=== PATIENT | female | born 1965 | race Caucasian/White ===

== ENCOUNTER → 2016-07-25 | Day surgery (SDC) | payer OTHER ==
[~2016-07-25] MED LIST: ABILIFY10 MG PO; ABILIFY5 MG PO; ADDERALL PO; ADDERALL20 MG; ALBUTEROL17 G1 INH; ALBUTEROL17 GM INH; ALPRAZOLAM PO; AMARYL2 MG PO; AMLODIPINE BESYL5 MG PO; ASPIRIN81 M1 PO; ATIVAN PO; AZMACORT20 GM INH; BENTYL10 M1 PO; BENTYL10 MG PO; BREO ELLIPTA 21 EACH INH; CARAFATE PO; CELEXA PO; CIPRO PO; CITALOPRAM HBR40 MG PO; CRESTOR10 MG PO; CRESTOR40 MG PO; CRESTOR5 MG PO; CUTIVATE TOP; DESOXIMETASONE15 G2 TOP; DESYREL150 M1 PO; DICYCLOMINE HCL10 MG PO; DYMISTA NASAL S23 GM; FOLAST TABLET1 EACH PO; GABAPENTIN600 MG PO; GLIMEPIRIDE2 MG PO; GLIPIZIDE10 MG PO; GLUCOPHAGE500 MG PO; GLUCOVANCE 5/501 TA2 PO; HCTZ PO; HUMALOG100 UNIT/1 SUBQ; HYDROCHLOROTHIA25 MG PO; IBUPROFEN800 MG PO; IMITREX PO; IMITREX50 MG PO; INVOKANA100 MG PO; ISOSORBIDE DINI30 MG PO; JANUVIA PO; JANUVIA25 MG PO; KCL PO; LANTUS SOL100 UNIT/1 SUBQ; LEVAQUIN PO; LIPITOR40 MG PO; LOMOTIL TABLET1 TAB PO; LOMOTIL WHITE2.5 M1 PO; LORTAB 5-325 M1 EACH PO; LYRICA50 MG PO; MAGNESIUM400 MG PO; MAXAIR INH; METFORMIN PO; MONTELUKAST SOD10 MG PO; NEURONTIN600 MG PO; NITROSTAT0.4 MG SL; NORVASC PO; OMEPRAZOLE40 M1 PO; OXYCODON HCL-1 UDTAB PO; OXYCODONE HCL10 MG PO; PERCOCET10 PO; PHENERGAN PR; POTASSIUM CHLO10 ME1 PO; POTASSIUM CHLO10 MEQ PO; PROTONIX PO; RITALIN PO; RITALIN10 MG PO; ROBAXIN500 MG PO; ROSUVASTATIN CA20 MG; SINGULAIR PO; SPIRIVA18 MCG INH; SUMATRIPTAN PO; SYMBICORT INH; SYNTHROID PO; SYNTHROID75 MCG PO; SYNTHROID88 MCG PO; TIZANIDINE HCL4 M1 PO; TYLENOL #3 PO; VICODIN 5/1 TAB 5/50 PO; VOLTAREN75 MG PO; WALGREENS PHARMACY; WELLBUTRIN SR150 MG PO; XANAX2 MG PO; ZANAFLEX4 M1 PO; ZESTRIL2.5 M1 PO; ZOCOR PO; ZOFRAN PO; ZOLOFT PO; ZOLPIDEM TARTRA10 MG PO; ZYRTEC PO; ZYRTEC10 M2 PO
--- NOTE | ~2016-07-25 | OR ---
Unit #: [id number] #: [id number] Patient: NGOC CLAYTON [id number] [address] [place], [place] [address] [id number] O MR#: [id number] NAME: NGOC CLAYTON. ROOM: Date of Procedure: 07/25/2016 Admission Date: 07/25/2016 Surgeon: Reymundo Mojica M.D. : 1965 Attending Physician: Reymundo Mojica M.D. Primary Care Physician: Jason Landrum M.D. OPERATIVE REPORT ATTENDING PHYSICIAN Jason Landrum M.D. PREOPERATIVE DIAGNOSES Dysphagia and colon cancer surveillance. The patient has personal history of colon polyps. PROCEDURES PERFORMED Upper gastrointestinal endoscopy and biopsy as well as colonoscopy and polypectomy. POSTOPERATIVE DIAGNOSES For upper endoscopy: 1. 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 No stricture or esophageal ring was seen. Rest of the examination up to the third part of duodenum was normal. Biopsies were obtained from the distal esophageal mucosa for Woodward segment. For colonoscopy: 1. A single sessile polyp in the distal sigmoid colon removed using snare polypectomy. 2. Hwsz-da-vhwdxfsy sigmoid and descending colon diverticulosis. 3. Rest of examination up to cecum was normal. The quality of the prep was good. RECOMMENDATIONS The patient will continue once a day PPI therapy. She will be followed up in the office in 6 months' time. She needs a repeat upper endoscopy in 2 years and colonoscopy in 5 years. SEDATION USED MAC. DESCRIPTION OF PROCEDURE Following detailed explanation of the potential risks and complications of an upper endoscopy and a colonoscopy, namely perforation, bleeding, and complications related to sedation, the patient was brought to GI lab and laid in the left lateral decubitus position. Lubricated tip of the Olympus video upper endoscope was passed through the bite block into the proximal esophagus under direct vision. The entire esophageal mucosa was examined. 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 In addition, a small hiatus hernia was noted. The scope was then advanced in Unit #: [id number] #: [id number] Patient: NGOC CLAYTON the gastric cavity. The latter was insufflated. Mucosa of the fundus, body, and antrum examined and appeared unremarkable. Pylorus was intubated with visualization of the normal duodenal bulb and second and third part of the duodenum. Upon withdrawal and retroflexion, incisura, cardia, and greater curve examined, no additional findings noted. The scope was withdrawn in the distal esophagus. Multiple biopsies were obtained from the Woodward segment and sent for histology. The entire esophageal mucosa was examined all the way up to pharynx. No additional findings were noted. The examination table was then turned by 180 degrees and the patient positioned for a colonoscopy. A digital rectal examination was performed, which was normal. Lubricated tip of the Olympus video colonoscope was inserted through the anus and advanced under direct vision. The scope was advanced and passed up to sigmoid into descending colon. A single sessile polyp was noted in the distal sigmoid colon, this was about 6 mm in size. It was removed using snare polypectomy. In addition, multiple small diverticula were noted in this area. The scope tip was then navigated all the way up to cecum with visualization of the ileocecal valve and the appendiceal orifice. Preparation was good with good visualization and photodocumentation was obtained. Successive segments of the colonic mucosa were examined upon withdrawal and appeared unremarkable except for the diverticula noted in the left side. No additional polyps were noted. The patient did not have any hemorrhoids at anal verge. The scope was then withdrawn. The patient returned to the recovery area. She tolerated the procedure without any postprocedure complications. Dictated by... Clari Luna/miah TD: 07/25/2016 12:19 JOB #: [id number] CC: Jason Landrum M.D. OPERATIVE REPORT Page 1 of 1 X Reymundo Mojica MD X PROCEDURE OPERATIVE NOTE
== END | disposition home or self-care (01) ==
LOC: COPS 07-04 09:00
DX: K22.70 Barrett's esophagus without dysplasia (principal); K44.9 Diaphragmatic hernia without obstruction or gangrene; Z12.11 Encounter for screening for malignant neoplasm of colon; D12.5 Benign neoplasm of sigmoid colon; K21.0 Gastro-esophageal reflux disease with esophagitis; R13.10 Dysphagia, unspecified; Z86.010 Personal history of colon polyps; E11.9 Type 2 diabetes mellitus without complications; E03.9 Hypothyroidism, unspecified; Z79.4 Long term (current) use of insulin; Z79.84 Long term (current) use of oral hypoglycemic drugs; F17.200 Nicotine dependence, unspecified, uncomplicated; J44.9 Chronic obstructive pulmonary disease, unspecified; I25.10 Atherosclerotic heart disease of native coronary artery without angina pectoris
CPT/HCPCS: 82947; 88305; J2250

== ENCOUNTER → 2016-09-25 | Outpatient (CLI) | payer OTHER ==
--- NOTE | ~2016-09-25 | CR126 ---
[facility] A Service of [facility] & [facility] RADIOLOGY TEXT RESULTS PATIENT: NGOC CLAYTON LOCATION: [facility] : 61 UNIT #: [id number] AGE: [address]: Ike Lopez DPM SEX: F ORDER DR: [id number] [facility] [address] [place], [place] [address] [id number] O MR#: [id number] Acc #: [id number] NAME: NGOC CLAYTON : 1965 SEX: F STUDY DATE/TIME: 09/25/2016 20:13 UNIT: [facility] ROOM: STUDY DESCRIPTION: CR Foot Complete Min 3 View Lt Attending Physician: Ike Lopez D.P.M. Referring Physician: Ike Lopez D.P.M. Ordering Physician: Ike Lopez D.P.M. Primary Care Physician: Jason Landrum M.D. MEDICAL IMAGING REPORT This report is preliminary unless electronic signature is present EXAM 4 views left foot INDICATIONS Left foot pain and swelling for 6 months. No known injury. FINDINGS No acute fracture or subluxation of the left foot is identified. There is enthesopathic change seen along the plantar aspect of the calcaneus which is stable when compared to November 07, 2014. There is some degenerative change noted at the metatarsophalangeal joint of the great toe, most in keeping with some osteoarthritis. Similar findings were present in November of 2014. No aggressive osseous abnormalities are seen. IMPRESSION No acute findings. Degenerative changes as noted above. Dictated by... Ana María Baker M.D. THIS IS AN ELECTRONICALLY VERIFIED REPORT Ana María Baker M.D. at 09/26/2016 5:32 PM AFF/df TD: 09/26/2016 11:39 JOB #: [id number] MEDICAL IMAGING REPORT Page 1 of 1 COPY
== END | disposition home or self-care (01) ==
LOC: CRAD 19:54
DX: M77.42 Metatarsalgia, left foot (principal); M19.072 Primary osteoarthritis, left ankle and foot
CPT/HCPCS: 73630